=== PATIENT | male | born 1985 | race Caucasian/White ===

== ENCOUNTER 2018-08-31 18:36 | Emergency (ER) | payer OTHER ==
--- NOTE | 2018-08-31 19:07 | ED Physician Documentation ---
History of Present Illness - Stated complaint Stated Complaint: COUGH - Chief complaint Chief Complaint: Resp - History obtained from History obtained from: Patient - Additonal information Additional information: Patient is a 33-year-old male presenting with less than 1 day of fever, nasal congestion and rhinorrhea, sore throat, productive cough. Patient denies ear pain, headache, significant shortness of breath or chest pain, as well as any abdominal issues. Patient has taken [id number] medication such as Mucinex without significant improvement. Patient also also tried spray to the throat, which has not provided much relief. Patient otherwise denies any improving or worsening factors to his symptoms. Review of Systems Constitutional: reports: Fever Respiratory: reports: Cough PD PAST MEDICAL HISTORY - Past Medical History Past Medical History: No Cardiovascular: None Respiratory: None Neuro: None Endocrine/Autoimmune: None GI: None : None HEENT: None Psych: None Musculoskeletal: None Derm: None - Past Surgical History Past Surgical History: Yes General: Appendectomy - Present Medications Home Medications: Ambulatory Orders Medication Instructions Recorded Confirmed Amox/Clav 875/125 [Augmentin] 1 each PO Q12H #10 tablet 08/31/18 - Allergies Allergies/Adverse Reactions: Allergies Allergy/AdvReac Type Severity Reaction Status Date / Time No Known Drug Allergies Allergy Verified 08/31/18 18:49 - Social History Does the pt smoke?: No Smoking Status: Never smoker Does the pt drink ETOH?: Yes ETOH Use: Beer, Other Does the pt have substance abuse?: No - Immunizations Immunizations are current?: Yes - POLST Patient has POLST: No PD ED PE NORMAL - HEENT HEENT: Atraumatic, Moist mucous membranes, Pharynx benign, Dentition benign, Other (No uvulitis, uvula deviation, peritonsillar abscess. No significant tonsillar or pharyngeal swelling or erythema. No exudate present.Cobblestoning consistent with postnasal drip.) - Neck Neck: Supple, no meningeal sign - Cardiac Cardiac: RRR, No murmur - Respiratory Respiratory: No respiratory distress, Clear bilaterally, Other (Dry, hacking cough present) - Abdomen Abdomen: Normal bowel sounds, Soft, Non tender, Non distended - Derm Derm: Normal color, Warm and dry, No rash - Extremities Extremities: No deformity, No tenderness to palpate - Neuro Neuro: Alert and oriented X 3, No motor deficit, No sensory deficit - Psych Psych: Normal mood, Normal affect Results - Vitals Vitals: Vital Signs - 24 hr 08/31/18 08/31/18 18:45 20:05 Temperature 36.6 C Heart Rate 115 H 107 H Respiratory 20 20 Rate Blood Pressure 140/82 H 127/86 H O2 Saturation 96 97 Oxygen O2 Source Room air - Labs Labs: Laboratory Tests 08/31/18 19:19 Influenza A (Rapid) Negative Influenza B (Rapid) Negative PD MEDICAL DECISION MAKING - ED course Complexity details: reviewed results, re-evaluated patient, considered differential, d/w patient ED course: Patient presenting with viral versus bacterial URI symptoms. Patient does complain of symptoms raise concern for sinusitis. No evidence of strep throat, tonsillitis, pharyngitis, or peritonsillar abscess noted on exam. Feel the patient's discomfort and sore throat is likely from postnasal drip and coughing. Also have lower suspicion for pneumonia despite productive cough as feel this is likely coming from the sinuses as opposed to lung. Pulmonary exam is extremely benign. Do not feel patient requires chest x-ray at this time. Also concern for other viral illnesses and influenza, particularly given significant prevalence in community at this time. Flu swab obtained, which returned negative. Discussed viral versus bacterial etiologies and decided on antibiotics to target sinusitis. Also discussed other supportive cares, return precautions, and follow-up. Patient voiced understanding and is comfortable with discharge plan. Departure - Departure Disposition: 01 Home, Self Care Clinical Impression: Upper respiratory tract infection, Sinusitis Condition: Good Instructions: ED Sinusitis Abx Tx Follow-Up: your,doctor [Other] - Within 3 Days Prescriptions: Amox/Clav 875/125 [Augmentin] 1 each PO Q12H #10 tablet Comments: May use antibiotic as prescribed for likely sinusitis. Also recommend other supportive cares such as [id number] medications like ibuprofen, Tylenol, Mucinex, DayQuil or NyQuil as as needed. Follow-up with primary care physician in next 2-3 days and return to ED sooner if expands worsening symptoms or other concerns. Discharge Date/Time: 08/31/18 20:07
[2018-08-31 20:07] VITALS: BP 127/86
== END 2018-08-31 20:07 | disposition home or self-care (01) ==
LOC: ED 18:36
DX: J06.9 Acute upper respiratory infection, unspecified (principal); J32.9 Chronic sinusitis, unspecified
CPT/HCPCS: 87275; 87276; 99283

== ENCOUNTER 2020-12-16 09:47 | Emergency (ER) | payer OTHER ==
[2020-12-16 09:57] VITALS: BP 135/87
[2020-12-16] MEDS ORDERED: IBUPROFEN 600 MG TABLET PO STA (10:00)
--- NOTE | 2020-12-16 10:23 | ED Physician Documentation ---
History of Present Illness - Stated complaint Stated Complaint: RIGHT ARM & SHOULDER PX - Chief complaint Chief Complaint: Trauma Ext - History obtained from History obtained from: Patient - Additonal information Additional information: 35-year-old man with prior history of right shoulder pain and injury presents with right arm and shoulder pain sudden onset after throwing a softball last night. It has been constant since that time, aching, moderate severity, worse with range of motion of the right shoulder. Review of Systems Skin: denies: Lesions Musculoskeletal: reports: Extremity pain. denies: Joint pain Neurologic: denies: Focal weakness, Numbness PD PAST MEDICAL HISTORY - Past Medical History Cardiovascular: None Respiratory: None Neuro: None Endocrine/Autoimmune: None GI: None : None HEENT: None Psych: None Musculoskeletal: None Derm: None - Past Surgical History Past Surgical History: Yes General: Appendectomy - Present Medications Home Medications: Ambulatory Orders Medication Instructions Recorded Confirmed No Known Home Medications 12/16/20 12/16/20 - Allergies Allergies/Adverse Reactions: Allergies Allergy/AdvReac Type Severity Reaction Status Date / Time No Known Drug Allergies Allergy Verified 12/16/20 09:56 - Social History Does the pt smoke?: No Smoking Status: Never smoker Does the pt drink ETOH?: Yes Does the pt have substance abuse?: No - Immunizations Immunizations are current?: Yes - POLST Patient has POLST: No PD ED PE NORMAL - Vitals Vital signs reviewed: Yes - General General: Alert and oriented X 3, No acute distress, Well developed/nourished - HEENT HEENT: Atraumatic, PERRL, EOMI - Derm Derm: Normal color, Warm and dry - Extremities Extremities: No deformity, Other (2+ radial pulse on the right upper extremity. Normal strength and sensation. Normal range of motion of all extremities. Discomfort with range of motion of the shoulder above midline. triceps muscle ttp) Results - Vitals Vitals: Vital Signs - 24 hr 12/16/20 09:51 Temperature 36.6 C Heart Rate 86 Respiratory 18 Rate Blood Pressure 135/87 H O2 Saturation 98 Oxygen O2 Source Room air PD MEDICAL DECISION MAKING - ED course ED course: 35-year-old man presents with mild muscle strain. Return precautions given. Education given. Patient will follow up with [facility]. Departure - Departure Disposition: 01 Home, Self Care Clinical Impression: Shoulder pain, Triceps strain Condition: Good Instructions: ED JIN Comments: You are seen in the emergency department for a triceps muscle strain. You can wear the sling for comfort and do range of motion exercises as tolerated. Follow-up with [facility] on Saturday. Return to the emergency department if you have any new or worsening symptoms or other concerns. Hope you feel better! Forms: Activity restrictions
--- NOTE | 2020-12-16 11:03 | XRAY Report ---
PROCEDURE: Shoulder 2 View RT INDICATIONS: R shoulder pain TECHNIQUE: 2 views of the shoulder were acquired. COMPARISON: None. FINDINGS: Bones: No acute fractures or dislocations. No suspicious bony lesions. Visualized ribs appear inta ct. Soft tissues: No suspicious soft tissue calcifications. IMPRESSION: No acute osseous abnormality. If there is clinical concern or persistent symptoms, addit ional imaging such as repeat radiographs or advanced imaging (e.g. CT, MRI) may be helpful for furthe r evaluation. Reviewed by: Tahir Stein MD on 12/16/2020 11:02 AM PDT Approved by: Tahir Stein MD on 12/16/2020 11:02 AM PDT Station ID: [id number]
== END 2020-12-16 10:54 | disposition home or self-care (01) ==
LOC: ED 09:47
DX: S46.311A Strain of muscle, fascia and tendon of triceps, right arm, initial encounter (principal); X58.XXXA Exposure to other specified factors, initial encounter; Y93.64 Activity, baseball
CPT/HCPCS: 73030; 99282; 99283; A9270